=== PATIENT | female | born 1960 | race American Indian/Alaskan Native ===

== ENCOUNTER 2018-04-05 12:26 | Observation (INO) | payer MEDICARE ==
[2018-04-05] MEDS ORDERED: NACL 0.9% 1000 ML 1,000 ML IV ONE (12:47)
[2018-04-05 13:29] LABS: Bacteria,Urine 1+ /HPF (Negative); Bilirubin,Urine NEG (Negative); Blood,Urine SM (Negative); Color,Urine Yellow (Yellow); Mucus,Urine FEW /HPF; Protein,Urine <15 mg/dL mg/dL (Negative); Urobilinogen,Urine < 2.0 mg/dL (<2.0)
[2018-04-05 15:42] LABS: Basophils % (Auto) 0.4 % (0.0-1.8); Hematocrit 42.4 % (30.3-42.9); Hemoglobin 14.1 gm/dl (10.1-14.3); Lymphocytes # (Auto) 0.9 K/mm3 (1.2-5.4); Lymphocytes % (Auto) 10.3 % (13.4-35.0); Mean Corpuscular HGB Conc 33 % (30-34); Mean Corpuscular Hemoglobin 27 pg (28-32); Mean Corpuscular Volume 80 fl (79-97); Monocytes # (Auto) 0.2 K/mm3 (0.0-0.8); Monocytes % (Auto) 2.2 % (0.0-7.3); Platelet Count 331 K/mm3 (140-440); Red Blood Count 5.31 M/mm3 (3.65-5.03); Red Cell Distribution Width 14.9 % (13.2-15.2)
[2018-04-05 16:00] LABS: Alanine Aminotransferase 43 units/L (7-56); BUN/Creatinine Ratio 13; Blood Urea Nitrogen 8 mg/dL (7-17); Calcium 9.2 mg/dL (8.4-10.2); Hemolysis Index 20
[2018-04-05] MEDS ORDERED: SUBLIMAZE IV ONE (23:48)
[2018-04-05] MEDS ORDERED: ZOFRAN IV ONE (23:48)
--- NOTE | 2018-04-05 23:50 | Emergency Department Report ---
ED General Adult HPI - General Chief complaint: Abdominal Pain Stated complaint: DEHYDRATED/VOMIT/STOMACH PAIN Time Seen by Provider: 04/05/18 23:47 Source: patient, RN notes reviewed, old records reviewed Mode of arrival: Wheelchair Limitations: No Limitations - History of Present Illness Initial comments: This is a 58-year-old female who is not known to this provider previously. Past medical history includes obesity and hypertension. Recently had a gastric bypass; bariatric surgeon is Dr. Anthony Asher. Patient presents to the ER with complaint of inability to tolerate liquid feeds, nausea and vomiting. She's vomited twice in the past 24 hours. Her symptoms worsen when she tries to eat. With rest. Since she's been nauseous and vomiting, she's developed intermittent central chest pain, which does not radiate to the back, arms and neck, there is no diaphoresis, and patient denies recent aspirin use and cocaine use. She reports that she felt fine. Date 2 after her surgery, and her nausea and vomiting recently developed. She denies irritative, obstructive urinary symptoms. The patient indicates mild abdominal discomfort, secondary to surgical incisions. -: Gradual Location: chest, abdomen Radiation: non-radiation Quality: aching Consistency: intermittent Improves with: other Worsens with: other Associated Symptoms: chest pain, malaise, nausea/vomiting, weakness. denies: confusion, cough, diaphoresis, fever/chills, headaches, loss of appetite, rash, seizure, syncope - Related Data Home Medications Medication Instructions Recorded Confirmed Last Taken Citalopram Hydrobromide 20 mg PO DAILY 03/31/18 03/31/18 03/31/18 [Citalopram HBr] Famotidine 40 mg PO QHS 03/31/18 03/31/18 03/31/18 Fluticasone [Flonase] 1 spray NS QDAY 03/31/18 03/31/18 03/31/18 Metoprolol/Hydrochlorothiazide 1 tab PO QHS 03/31/18 03/31/18 03/31/18 [Metoprolol HCTZ 50-25 mg TAB] Pantoprazole [Protonix TAB] 40 mg PO QDAY 03/31/18 03/31/18 03/31/18 Topiramate [Topamax] 100 mg PO BID 03/31/18 03/31/18 03/31/18 Biotin 800 mcg PO DAILY 04/01/18 04/01/18 03/31/18 Ferrous Sulfate [Iron] 1 tab PO DAILY 04/01/18 04/01/18 03/31/18 Multivitamin [Multiple Vitamins] 1 each PO DAILY 04/01/18 04/01/18 03/31/18 Red Yeast Rice 600 mg PO DAILY 04/01/18 04/01/18 03/31/18 Allergies Allergy/AdvReac Type Severity Reaction Status Date / Time latex Allergy Rash Verified 03/31/18 10:47 ED Review of Systems ROS: Stated complaint: DEHYDRATED/VOMIT/STOMACH PAIN Other details as noted in HPI Comment: All other systems reviewed and negative ED Past Medical Hx - Past Medical History Hx Hypertension: Yes Hx Congestive Heart Failure: No Hx Diabetes: No Hx GERD: Yes Hx Liver Disease: No Hx Renal Disease: No Hx Sickle Cell Disease: No Hx Seizures: No Hx Asthma: No Hx COPD: No - Surgical History Hx Internal Defibrillator: No Hx Cholecystectomy: Yes - Social History Smoking Status: Never Smoker Substance Use Type: None - Medications Home Medications: Home Medications Medication Instructions Recorded Confirmed Last Taken Type Citalopram Hydrobromide 20 mg PO DAILY 03/31/18 03/31/18 03/31/18 History [Citalopram HBr] Famotidine 40 mg PO QHS 03/31/18 03/31/18 03/31/18 History Fluticasone [Flonase] 1 spray NS QDAY 03/31/18 03/31/18 03/31/18 History Metoprolol/Hydrochlorothiazide 1 tab PO QHS 03/31/18 03/31/18 03/31/18 History [Metoprolol HCTZ 50-25 mg TAB] Pantoprazole [Protonix TAB] 40 mg PO QDAY 03/31/18 03/31/18 03/31/18 History Topiramate [Topamax] 100 mg PO BID 03/31/18 03/31/18 03/31/18 History Biotin 800 mcg PO DAILY 04/01/18 04/01/18 03/31/18 History Ferrous Sulfate [Iron] 1 tab PO DAILY 04/01/18 04/01/18 03/31/18 History Multivitamin [Multiple Vitamins] 1 each PO DAILY 09/18/18 09/18/18 09/17/18 History Red Yeast Rice 600 mg PO DAILY 04/01/18 04/01/18 03/31/18 History ED Physical Exam - General Limitations: No Limitations General appearance: alert, in no apparent distress - Head Head exam: Present: atraumatic, normocephalic - Eye Eye exam: Present: normal appearance, EOMI. Absent: nystagmus - ENT ENT exam: Present: normal exam, normal orophraynx, mucous membranes moist, normal external ear exam - Neck Neck exam: Present: normal inspection, full ROM. Absent: tenderness, meningismus - Respiratory Respiratory exam: Present: decreased breath sounds. Absent: respiratory distress - Cardiovascular Cardiovascular Exam: Present: regular rate, normal rhythm, normal heart sounds. Absent: systolic murmur, diastolic murmur, rubs, gallop - GI/Abdominal GI/Abdominal exam: Present: soft, tenderness, other (patient has lower abdominal ecchymosis, consistent with recent surgical intervention. Mild abdominal tenderness over surgical incision sites, however no rebound, guarding or peritoneal signs.). Absent: distended, rebound, rigid, pulsatile mass - Extremities Exam Extremities exam: Present: normal inspection, full ROM, other (2+ pulses noted in the bilateral upper, lower extremities. Compartments soft. No long bony tenderness. The pelvis is stable.). Absent: pedal edema, joint swelling, calf tenderness - Back Exam Back exam: Present: normal inspection, full ROM. Absent: tenderness, CVA tenderness (R), paraspinal tenderness, vertebral tenderness - Neurological Exam Neurological exam: Present: alert, oriented X3, CN II-XII intact, other ( Extraocular movements intact. Tongue midline. No facial droop. Facial sensation intact to light touch in the V1, V2, V3 distribution bilaterally. 5 and 5 strength in 4 extremities.. Sensation is intact to light touch in 4 extremities.). Absent: motor sensory deficit - Psychiatric Psychiatric exam: Present: normal affect, normal mood - Skin Skin exam: Present: warm, dry, intact, normal color. Absent: rash ED Course Vital Signs 04/05/18 04/06/18 12:42 02:00 Temperature 98.1 F Pulse Rate 61 58 L Respiratory 16 Rate Blood Pressure 150/82 Blood Pressure 148/78 [Left] O2 Sat by Pulse 98 99 Oximetry - Reevaluation(s) Reevaluation #1: 04/06/18 00:49 Differential diagnosis, including but not limited to: Postoperative nausea and vomiting, GERD, gastritis, hiatal hernia, pulmonary embolus, acute coronary syndrome, postsurgical complication, dehydration Assessment and plan: 58-year-old female status post recent gastric bypass, with nausea and vomiting and likely chest pain secondary to nausea and vomiting. We will obtain CT scan of the chest to exclude pulmonary embolus, and CT scan of the abdomen and pelvis. I doubt pulmonary embolus given lack of tachycardia and hypoxia. X-ray the chest is negative. Found to be hypokalemic. Potassium within normal limits. We will replete potassium. Patient found to have ketones in urine, consistent with probable dehydration, D5 half-normal is ordered. We will reassess after data points have resulted. Reevaluation #2: 04/06/18 03:49 CT scan of the chest is negative for significant disease. CT scan of the abdomen and pelvis shows postoperative changes. Patient has had a negative troponin, however her EKG is markedly abnormal with numerous T-wave inversions in the anterolateral leads, with no prior for comparison. Given her advanced age, vascular risk factors, obesity, and abnormal EKG, I do not find the patient to be low risk by the heart score, do not find her suitable for outpatient cardiac risk stratification. I have rediscussed the case with the covering surgeon for Dr. Asher, Dr. Toth; the bariatric surgery team is going to follow the patient in consultation. Case is presented to the Hospital physician, Dr. Lopes, who accepted the patient to medical service for cardiac risk stratification. NSAIDs , aspirin and antiplatelet agents are contraindicated given her recent bariatric surgery, so I will defer to the inpatient team. - EJ/Peripheral Line Neck L Time Out Performed: Yes Indications: nurses unable to establis Skin Cleansed in Sterile Fashion: Yes Size: 20 Dressing Placed: Tegaderm Patient Tolerated Procedure: well ED Medical Decision Making - Lab Data Result diagrams: 04/05/18 15:18 04/05/18 15:18 Vital Signs 04/05/18 12:42 Temperature 98.1 F Pulse Rate 61 Blood Pressure 150/82 O2 Sat by Pulse 98 Oximetry Lab Results 04/05/18 04/05/18 04/05/18 Range/Units 00:00 13:06 15:18 WBC 8.6 (4.5-11.0) K/mm3 RBC 5.31 H (3.65-5.03) M/mm3 Hgb 14.1 (10.1-14.3) gm/dl Hct 42.4 (30.3-42.9) % MCV 80 (79-97) fl MCH 27 L (28-32) pg MCHC 33 (30-34) % RDW 14.9 (13.2-15.2) % Plt Count 331 (140-440) K/mm3 Lymph % (Auto) 10.3 L (13.4-35.0) % [place] % (Auto) 2.2 (0.0-7.3) % Eos % (Auto) 0.0 (0.0-4.3) % Baso % (Auto) 0.4 (0.0-1.8) % Lymph # 0.9 L (1.2-5.4) K/mm3 [place] # 0.2 (0.0-0.8) K/mm3 Eos # 0.0 (0.0-0.4) K/mm3 Baso # 0.0 (0.0-0.1) K/mm3 Seg Neutrophils % 87.1 H (40.0-70.0) % Seg Neutrophils # 7.5 (1.8-7.7) K/mm3 Sodium (137-145) mmol/L Potassium (3.6-5.0) mmol/L Chloride (98-107) mmol/L Carbon Dioxide (22-30) mmol/L Anion Gap mmol/L BUN (7-17) mg/dL Creatinine (0.7-1.2) mg/dL Estimated GFR ml/min BUN/Creatinine Ratio % Glucose (65-100) mg/dL Calcium (8.4-10.2) mg/dL Magnesium (1.7-2.3) mg/dL Total Bilirubin (0.1-1.2) mg/dL AST (5-40) units/L ALT (7-56) units/L Alkaline Phosphatase (35-129) units/L Troponin T < 0.010 (0.00-0.029) ng/mL Total Protein (6.3-8.2) g/dL Albumin (3.9-5) g/dL Albumin/Globulin Ratio % Urine Color Yellow (Yellow) Urine Turbidity Clear (Clear) Urine pH 5.0 (5.0-7.0) Ur Specific [place] 1.017 (1.003-1.030) Urine Protein <15 mg/dl (Negative) mg/dL Urine Glucose (UA) Neg (Negative) mg/dL Urine Ketones 80 (Negative) mg/dL Urine Blood Sm (Negative) Urine Nitrite Neg (Negative) Urine Bilirubin Neg (Negative) Urine Urobilinogen < 2.0 (<2.0) mg/dL Ur Leukocyte Esterase Neg (Negative) Urine WBC (Auto) 1.0 (0.0-6.0) /HPF Urine RBC (Auto) 1.0 (0.0-6.0) /HPF U Epithel Cells (Auto) 2.0 (0-13.0) /HPF Urine Bacteria (Auto) 1+ (Negative) /HPF Urine Mucus Few /HPF 04/05/18 04/05/18 Range/Units 15:18 16:20 WBC (4.5-11.0) K/mm3 RBC (3.65-5.03) M/mm3 Hgb (10.1-14.3) gm/dl Hct (30.3-42.9) % MCV (79-97) fl MCH (28-32) pg MCHC (30-34) % RDW (13.2-15.2) % Plt Count (140-440) K/mm3 Lymph % (Auto) (13.4-35.0) % [place] % (Auto) (0.0-7.3) % Eos % (Auto) (0.0-4.3) % Baso % (Auto) (0.0-1.8) % Lymph # (1.2-5.4) K/mm3 [place] # (0.0-0.8) K/mm3 Eos # (0.0-0.4) K/mm3 Baso # (0.0-0.1) K/mm3 Seg Neutrophils % (40.0-70.0) % Seg Neutrophils # (1.8-7.7) K/mm3 Sodium 135 L D (137-145) mmol/L Potassium 3.2 L (3.6-5.0) mmol/L Chloride 96.5 L (98-107) mmol/L Carbon Dioxide 22 (22-30) mmol/L Anion Gap 20 mmol/L BUN 8 (7-17) mg/dL Creatinine 0.6 L (0.7-1.2) mg/dL Estimated GFR > 60 ml/min BUN/Creatinine Ratio 13 % Glucose 115 H (65-100) mg/dL Calcium 9.2 (8.4-10.2) mg/dL Magnesium 2.10 (1.7-2.3) mg/dL Total Bilirubin 0.70 (0.1-1.2) mg/dL AST 40 (5-40) units/L ALT 43 (7-56) units/L Alkaline Phosphatase 74 (35-129) units/L Troponin T (0.00-0.029) ng/mL Total Protein 7.3 (6.3-8.2) g/dL Albumin 4.0 (3.9-5) g/dL Albumin/Globulin Ratio 1.2 % Urine Color (Yellow) Urine Turbidity (Clear) Urine pH (5.0-7.0) Ur Specific [place] (1.003-1.030) Urine Protein (Negative) mg/dL Urine Glucose (UA) (Negative) mg/dL Urine Ketones (Negative) mg/dL Urine Blood (Negative) Urine Nitrite (Negative) Urine Bilirubin (Negative) Urine Urobilinogen (<2.0) mg/dL Ur Leukocyte Esterase (Negative) Urine WBC (Auto) (0.0-6.0) /HPF Urine RBC (Auto) (0.0-6.0) /HPF U Epithel Cells (Auto) (0-13.0) /HPF Urine Bacteria (Auto) (Negative) /HPF Urine Mucus /HPF - EKG Data -: EKG Interpreted by Al - Radiology Data Radiology results: report reviewed, image reviewed X-ray of the chest is negative for acute disease Critical care attestation.: If time is entered above; I have spent that time in minutes in the direct care of this critically ill patient, excluding procedure time. ED Disposition Clinical Impression: Chest pain, Abnormal EKG, Nausea & vomiting, Dehydration, Hypokalemia Disposition: OP ADMIT IP TO THIS HOSP Is pt being admited?: Yes Condition: Good Instructions: Abdominal Pain (ED), Chest Pain (ED) Referrals: PRIMARY CARE, [Primary Care Provider] - 3-5 Days
--- NOTE | 2018-04-06 00:13 | XRay Report ---
FINAL REPORT EXAM: XR CHEST 1V AP HISTORY: cp TECHNIQUE: AP portable view of the chest. PRIORS: None. FINDINGS: The cardiomediastinal silhouette appears normal. The lungs are clear. The bones and soft tissues are unremarkable. IMPRESSION: No evidence of acute cardiopulmonary disease.
[2018-04-06] MEDS ORDERED: D5/0.45NS 1,000 ML IV SCH (01:00)
[2018-04-06 01:32] LABS: INR 0.99 (0.87-1.13)
[2018-04-06] MEDS ORDERED: ZOFRAN ONE (01:58)
[2018-04-06] MEDS ORDERED: SUBLIMAZE ONE (01:59)
[2018-04-06] MEDS: KCL 10MEQ/100ML 10 MEQ/100 ML BAG IV SCH ×6 (02:00→11:16)
--- NOTE | 2018-04-06 02:00 | Cat Scan Report ---
FINAL REPORT EXAM: CT ANGIO CHEST HISTORY: chest pain recent gastric bypass TECHNIQUE: High-resolution helical axial images were obtained of the chest during intravenous administration of iodinated contrast. Images are reconstructed in the sagittal and coronal planes. PRIORS: None. FINDINGS: There is no evidence of pulmonary embolism, the pulmonary arteries opacify normally. The heart and thoracic aorta appear normal. There is a small left pleural effusion. There is mild left basilar subsegmental atelectasis. The right lung is clear Images through the upper abdomen are unremarkable. The bones are unremarkable. IMPRESSION: 1. No evidence of pulmonary embolism. 2. Small left pleural effusion and mild left basilar subsegmental atelectasis
--- NOTE | 2018-04-06 02:38 | Cat Scan Report ---
FINAL REPORT EXAM: CT ABDOMEN PELVIS W CON HISTORY: abd pain pain recent gastric bypass TECHNIQUE: Dynamic helical CT scan through the abdomen and pelvis during and again after intravenous injection of iodinated contrast. Images are reconstructed in the sagittal and coronal planes. Oral contrast was not given. PRIORS: None. FINDINGS: The liver, pancreas and adrenal glands appear normal. There are surgical clips in the gallbladder fossa. There is a 2.3 cm low-attenuation lesion in the spleen with punctate calcifications. The right kidney appears normal. There is a 1.3 cm cyst in the left kidney. The pelvic organs appear grossly normal. There is a small amount of free pelvic fluid There are multiple surgical clips in the stomach. The loop of jejunum that is anastomosed with stomach is thickened and has an air-fluid level. A normal-appearing appendix is identified. There is no evidence of bowel obstruction. The abdominal aorta has a normal diameter. The bones and subcutaneous soft tissues are unremarkable for age. There graying of the subcutaneous fat of the anterior abdominal wall below the umbilicus. IMPRESSION: 1. There is thickening with air-fluid levels of the proximal jejunum near the gastric anastomosis. This may represent inflammatory or postoperative change. There is no evidence of bowel obstruction. 2. Graying of the subcutaneous fat of the anterior abdominal wall below the umbilicus may represent panniculitis. 3. There is a small amount of free pelvic fluid probably related to recent surgery.
[2018-04-06] MEDS ORDERED: TYLENOL PO PRN (04:38)
[2018-04-06] MEDS ORDERED: PHENERGAN PR PRN (04:38)
[2018-04-06] MEDS ORDERED: ZOFRAN IV PRN (04:38)
[2018-04-06] MEDS ORDERED: SODIUM CHLORIDE FLUSH SYRINGE 10 ML IV PRN (04:38)
[2018-04-06] MEDS ORDERED: NITROSTAT SL PRN (04:45)
--- NOTE | 2018-04-06 04:57 | History and Physical Report ---
History of Present Illness Date of examination: 04/06/18 Date of admission: 04/06/18 Chief complaint: Nausea and vomiting History of present illness: Patient is a 58-year-old -[place] female with history of chronic headaches and hypertension who presented to the ED on account of 2 days history of nausea with vomiting times multiple episodes. Patient stated that she had gastric bypass surgery 3 days prior to onset of symptoms. She has associated generalized abdominal soreness and constipation. She is also complaining of one -day history of midsternal chest pain. She described it as aching in nature, rated 8/10, constant in duration and nonradiating. She has associated dry cough , chronic headaches and dizziness. No diaphoresis, palpitation, leg swelling, fever, chills, orthopnea or PND. No diarrhea, dysuria or frequency. No syncope or loss of consciousness. Past History Past Medical History: GERD, hypertension, other (chronic headaches, obesity) Past Surgical History: cholecystectomy, Other (gastric bypass) Social history: no significant social history (she denies tobacco, alcohol or illicit drug use) Family history: no significant family history (reviewed and non-contributory) Medications and Allergies Allergies Allergy/AdvReac Type Severity Reaction Status Date / Time latex Allergy Rash Verified 03/31/18 10:47 Home Medications Medication Instructions Recorded Confirmed Last Taken Type Citalopram Hydrobromide 20 mg PO DAILY 03/31/18 03/31/18 03/31/18 History [Citalopram HBr] Famotidine 40 mg PO QHS 03/31/18 03/31/18 03/31/18 History Fluticasone [Flonase] 1 spray NS QDAY 03/31/18 03/31/18 03/31/18 History Metoprolol/Hydrochlorothiazide 1 tab PO QHS 03/31/18 03/31/18 03/31/18 History [Metoprolol HCTZ 50-25 mg TAB] Pantoprazole [Protonix TAB] 40 mg PO QDAY 03/31/18 03/31/18 03/31/18 History Topiramate [Topamax] 100 mg PO BID 03/31/18 03/31/18 03/31/18 History Biotin 800 mcg PO DAILY 04/01/18 04/01/18 03/31/18 History Ferrous Sulfate [Iron] 1 tab PO DAILY 04/01/18 04/01/18 03/31/18 History Multivitamin [Multiple Vitamins] 1 each PO DAILY 04/01/18 04/01/18 03/31/18 History Red Yeast Rice 600 mg PO DAILY 04/01/18 04/01/18 03/31/18 History Active Meds: Active Medications Acetaminophen (Tylenol) 650 mg PO Q4H PRN PRN Reason: Pain MILD(1-3)/Fever >100.5/[place] Acetaminophen/Hydrocodone Bitart ([place] 5/325) 1 each PO Q6H PRN PRN Reason: Pain, Moderate (4-6) Enoxaparin Sodium (Lovenox) 40 mg SUB-Q QDAY RIO Famotidine (Pepcid) 10 mg IV BID [facility] Dextrose/Sodium Chloride (D5/0.45ns) 1,000 mls @ 0 mls/hr IV DIRECT RIO Last Admin: 04/06/18 02:23 Dose: 999 mls/hr Potassium Chloride/Sodium Chloride (Ns/Kcl 20meq) 20 meq in 1,000 mls @ 100 mls /hr IV DIRECT RIO Potassium Chloride (Kcl 10meq/100ml) 10 meq in 100 mls @ 100 mls/hr IV Q1H [facility] Stop: 04/06/18 08:59 Morphine Sulfate (Morphine) 2 mg IV Q4H PRN PRN Reason: Pain, Moderate (4-6) Nitroglycerin (Nitrostat) 0.4 mg SL .Q5MIN PRN PRN Reason: Chest Pain Ondansetron HCl (Zofran) 4 mg IV Q4H PRN PRN Reason: Nausea And Vomiting Potassium Chloride (K-Dur) 20 meq PO DAILY RIO Stop: 04/08/18 09:59 Promethazine HCl (Phenergan) 25 mg UT Q6H PRN PRN Reason: N/V IF NPO AND NO IV ACCESS Sodium Chloride (Sodium Chloride Flush Syringe 10 Ml) 10 ml IV BID RIO Sodium Chloride (Sodium Chloride Flush Syringe 10 Ml) 10 ml IV PRN PRN PRN Reason: LINE FLUSH Review of Systems All systems: negative (except as documented in the HPI, all other systems were reviewed and negative) Exam - Constitutional Vitals: Temp Pulse Resp BP Pulse Ox 98.1 F 58 L 16 148/78 99 04/05/18 12:42 04/06/18 02:00 04/06/18 02:00 04/06/18 02:00 04/06/18 02:00 General appearance: Present: no acute distress, well-nourished - EENT Eyes: Present: PERRL, EOM intact ENT: hearing intact, clear oral mucosa - Neck Neck: Present: supple, normal ROM - Respiratory Respiratory effort: normal Respiratory: bilateral: CTA - Cardiovascular Rhythm: regular Heart Sounds: Present: S1 & S2. Absent: rub, click - Extremities Extremities: pulses symmetrical, No edema Peripheral Pulses: within normal limits - Abdominal General gastrointestinal: Present: soft, tender (mild and generalized), non- distended, normal bowel sounds, other (operation site clean) - Integumentary Integumentary: Present: clear, warm, dry - Musculoskeletal Musculoskeletal: gait normal, strength equal bilaterally - Psychiatric Psychiatric: appropriate mood/affect, intact judgment & insight - Neurologic Neurologic: CNII-XII intact, moves all extremities Results - Labs CBC & Chem 7: 04/05/18 15:18 04/05/18 15:18 Labs: Laboratory Last Values WBC 8.6 K/mm3 (4.5-11.0) 04/05/18 15:18 RBC 5.31 M/mm3 (3.65-5.03) H 04/05/18 15:18 Hgb 14.1 gm/dl (10.1-14.3) 04/05/18 15:18 Hct 42.4 % (30.3-42.9) 04/05/18 15:18 MCV 80 fl (79-97) 04/05/18 15:18 MCH 27 pg (28-32) L 04/05/18 15:18 MCHC 33 % (30-34) 04/05/18 15:18 RDW 14.9 % (13.2-15.2) 04/05/18 15:18 Plt Count 331 K/mm3 (140-440) 04/05/18 15:18 Lymph % (Auto) 10.3 % (13.4-35.0) L 04/05/18 15:18 [place] % (Auto) 2.2 % (0.0-7.3) 04/05/18 15:18 Eos % (Auto) 0.0 % (0.0-4.3) 04/05/18 15:18 Baso % (Auto) 0.4 % (0.0-1.8) 04/05/18 15:18 Lymph # 0.9 K/mm3 (1.2-5.4) L 04/05/18 15:18 [place] # 0.2 K/mm3 (0.0-0.8) 04/05/18 15:18 Eos # 0.0 K/mm3 (0.0-0.4) 04/05/18 15:18 Baso # 0.0 K/mm3 (0.0-0.1) 04/05/18 15:18 Seg Neutrophils % 87.1 % (40.0-70.0) H 04/05/18 15:18 Seg Neutrophils # 7.5 K/mm3 (1.8-7.7) 04/05/18 15:18 PT 13.6 Sec. (12.2-14.9) 04/05/18 00:49 INR 0.99 (0.87-1.13) 04/05/18 00:49 Sodium 135 mmol/L (137-145) L D 04/05/18 15:18 Potassium 3.2 mmol/L (3.6-5.0) L 04/05/18 15:18 Chloride 96.5 mmol/L (98-107) L 04/05/18 15:18 Carbon Dioxide 22 mmol/L (22-30) 04/05/18 15:18 Anion Gap 20 mmol/L 04/05/18 15:18 BUN 8 mg/dL (7-17) 04/05/18 15:18 Creatinine 0.6 mg/dL (0.7-1.2) L 04/05/18 15:18 Estimated GFR > 60 ml/min 04/05/18 15:18 BUN/Creatinine Ratio 13 % 04/05/18 15:18 Glucose 115 mg/dL (65-100) H 04/05/18 15:18 Calcium 9.2 mg/dL (8.4-10.2) 04/05/18 15:18 Magnesium 2.10 mg/dL (1.7-2.3) 04/05/18 16:20 Total Bilirubin 0.70 mg/dL (0.1-1.2) 04/05/18 15:18 AST 40 units/L (5-40) 04/05/18 15:18 ALT 43 units/L (7-56) 04/05/18 15:18 Alkaline Phosphatase 74 units/L (35-129) 04/05/18 15:18 Troponin T < 0.010 ng/mL (0.00-0.029) 04/05/18 00:00 Total Protein 7.3 g/dL (6.3-8.2) 04/05/18 15: Albumin 4.0 g/dL (3.9-5) 04/05/18 15:18 Albumin/Globulin Ratio 1.2 % 04/05/18 15:18 Urine Color Yellow (Yellow) 04/05/18 13:06 Urine Turbidity Clear (Clear) 04/05/18 13:06 Urine pH 5.0 (5.0-7.0) 04/05/18 13:06 Ur Specific [place] 1.017 (1.003-1.030) 04/05/18 13:06 Urine Protein <15 mg/dl mg/dL (Negative) 04/05/18 13:06 Urine Glucose (UA) Neg mg/dL (Negative) 04/05/18 13:06 Urine Ketones 80 mg/dL (Negative) 04/05/18 13:06 Urine Blood Sm (Negative) 04/05/18 13:06 Urine Nitrite Neg (Negative) 04/05/18 13:06 Urine Bilirubin Neg (Negative) 04/05/18 13:06 Urine Urobilinogen < 2.0 mg/dL (<2.0) 04/05/18 13:06 Ur Leukocyte Esterase Neg (Negative) 04/05/18 13:06 Urine WBC (Auto) 1.0 /HPF (0.0-6.0) 04/05/18 13:06 Urine RBC (Auto) 1.0 /HPF (0.0-6.0) 04/05/18 13:06 U Epithel Cells (Auto) 2.0 /HPF (0-13.0) 04/05/18 13:06 Urine Bacteria (Auto) 1+ /HPF (Negative) 04/05/18 13:06 Urine Mucus Few /HPF 04/05/18 13:06 Assessment and Plan Assessment and plan: Intractable N/V -On PRN anti-emetics and IVF Atypical chest pain, probably sec to GERD -On IV protonix -will cont serial troponin level and EKG monitoring -Pt reported that she had a stress less than a yr ago, which was normal Hypokalemia -will replete and monitor k level -mg level normal Mild hyponatremia -On IVF, will monitor Na level Chronic headaches -resume home med HTN, stable -resume home meds and PRN hydralazine Constipation -on laxatives Hx of recent gastric bypass -Her surgeon consulted in the ED Prophylaxis -DVT Prophylaxis with Lovenox TIME SPENT: 35 MINUTES Disposition: discharge will depend on clinical course
[2018-04-06] MEDS ORDERED: DULCOLAX PO PRN (05:02)
[2018-04-06] MEDS ORDERED: APRESOLINE IV PRN (05:15)
[2018-04-06] MEDS ORDERED: NACL 0.9% 500 ML 500 ML IV ONE (06:00)
[2018-04-06] MEDS ORDERED: NACL 0.9% 500 ML 500 ML ONE (06:35)
[2018-04-06] MEDS: MORPHINE IV PRN ×3 (06:59→21:45)
--- NOTE | 2018-04-06 09:48 | Consultation ---
History of Present Illness - Reason for Consult Consult date: 04/06/18 Post-surgical patient Requesting physician: NANCY CUEVAS - History of Present Illness 58F POD#5 from laparoscopic RYGB and upper endoscopy (04/01/18) for morbid obesity, known to Dr Asher's service, admitted from ER early this am for nausea , vomiting, abdominal and chest pain. She states this started two days after surgery and gradually worsened where she could no longer take in any po due to intractable nausea. Ondansetron did not help as she could not swallow any pills. She presented to the ER last night w/ c/o N/V/chest and abd pain. Denies fevers, chills, diarrhea, dysuria, and constipation, although she does c/o lower abdominal discomfort or "heaviness" in her abdominal wall. Labs were obtained which demonstrated hypokalemia at 3.2, the rest of the values were WNL. A CTA chest was done which was negative and a CT abd/pelvis w/ IV contrast showed routine postop changes, no other acute pathology. An EKG was abnormal and thus she was admitted to the Hospitalist service for further cardiac evaluation. This am, she reports feeling better in terms of nausea. She does feel hungry and her abdominal pain is improved. Past History Past Medical History: GERD, hypertension, other (chronic headaches, obesity) Past Surgical History: cholecystectomy, Other (gastric bypass) Social history: no significant social history (she denies tobacco, alcohol or illicit drug use), Family history: no significant family history (reviewed and non-contributory) Medications and Allergies Allergies Allergy/AdvReac Type Severity Reaction Status Date / Time latex Allergy Rash Verified 03/31/18 10:47 Home Medications Medication Instructions Recorded Confirmed Last Taken Type Citalopram Hydrobromide 20 mg PO DAILY 03/31/18 03/31/18 03/31/18 History [Citalopram HBr] Famotidine 40 mg PO QHS 03/31/18 03/31/18 03/31/18 History Fluticasone [Flonase] 1 spray NS QDAY 03/31/18 03/31/18 03/31/18 History Metoprolol/Hydrochlorothiazide 1 tab PO QHS 03/31/18 03/31/18 03/31/18 History [Metoprolol HCTZ 50-25 mg TAB] Pantoprazole [Protonix TAB] 40 mg PO QDAY 03/31/18 03/31/18 03/31/18 History Topiramate [Topamax] 100 mg PO BID 03/31/18 03/31/18 03/31/18 History Biotin 800 mcg PO DAILY 04/01/18 04/01/18 03/31/18 History Ferrous Sulfate [Iron] 1 tab PO DAILY 04/01/18 04/01/18 03/31/18 History Multivitamin [Multiple Vitamins] 1 each PO DAILY 04/01/18 04/01/18 03/31/18 History Red Yeast Rice 600 mg PO DAILY 04/01/18 04/01/18 03/31/18 History Active Meds: Active Medications Acetaminophen (Tylenol) 650 mg PO Q4H PRN PRN Reason: Pain MILD(1-3)/Fever >100.5/[place]TE[place] Acetaminophen/Hydrocodone Bitart ([place] 5/325) 1 each PO Q6H PRN PRN Reason: Pain, Moderate (4-6) Bisacodyl (Dulcolax) 10 mg PO QDAY PRN PRN Reason: Constipation Enoxaparin Sodium (Lovenox) 40 mg SUB-Q QDAY RIO Hydralazine HCl (Apresoline) 10 mg IV Q6H PRN PRN Reason: Blood Pressure Potassium Chloride/Sodium Chloride (Ns/Kcl 20meq) 20 meq in 1,000 mls @ 100 mls /hr IV DIRECT RIO Morphine Sulfate (Morphine) 2 mg IV Q4H PRN PRN Reason: Pain, Moderate (4-6) Last Admin: 04/06/18 06:59 Dose: 2 mg Nitroglycerin (Nitrostat) 0.4 mg SL .Q5MIN PRN PRN Reason: Chest Pain Ondansetron HCl (Zofran) 4 mg IV Q4H PRN PRN Reason: Nausea And Vomiting Pantoprazole Sodium (Protonix) 40 mg IV BID [facility] Potassium Chloride (K-Dur) 20 meq PO DAILY RIO Stop: 04/08/18 09:59 Promethazine HCl (Phenergan) 25 mg TX Q6H PRN PRN Reason: N/V IF NPO AND NO IV ACCESS Senna/Docusate Sodium (Senokot S) 2 tab PO BID [facility] Sodium Chloride (Sodium Chloride Flush Syringe 10 Ml) 10 ml IV BID RIO Sodium Chloride (Sodium Chloride Flush Syringe 10 Ml) 10 ml IV PRN PRN PRN Reason: LINE FLUSH Review of Systems All systems: negative (as mentioned in HPI) Exam - Physical Exam Narrative exam: GEN: AAO, NAD, laying in bed. Her daughter is present HEENT: Atraumatic HEART: RRR, normal S1 and S2, no murmurs are appreciated LUNGS: CTAB, no wheezes, no rales ABD: Soft, morbidly obese, mildly tender at lower mid-quadrant, Incisions c/d/ i. Large ecchymotic region inferior to her umbilicus that is soft, no crepitus or induration palpated, no warmth. EXT: no LE edema NEURO: venue attendant grossly intact, gait unassessed PSYCH: normal affect, cooperative - Constitutional Vitals: Temp Pulse Resp BP Pulse Ox 98.5 F 64 18 96/52 98 04/06/18 08:08 04/06/18 08:08 04/06/18 08:08 04/06/18 08:08 04/06/18 08:08 Results - Labs CBC & Chem 7: 04/05/18 15:18 04/05/18 15:18 Labs: Abnormal lab results 04/05/18 04/05/18 Range/Units 15:18 15:18 RBC 5.31 H (3.65-5.03) M/mm3 MCH 27 L (28-32) pg Lymph % (Auto) 10.3 L (13.4-35.0) % Lymph # 0.9 L (1.2-5.4) K/mm3 Seg Neutrophils % 87.1 H (40.0-70.0) % Sodium 135 L D (137-145) mmol/L Potassium 3.2 L (3.6-5.0) mmol/L Chloride 96.5 L (98-107) mmol/L Creatinine 0.6 L (0.7-1.2) mg/dL Glucose 115 H (65-100) mg/dL - Imaging and Cardiology Chest x-ray: report reviewed, image reviewed CT scan - abdomen: report reviewed, image reviewed CT scan - chest: report reviewed, image reviewed CT scan - pelvis: report reviewed, image reviewed Assessment and Plan 58F s/p LRYGB 04/01/18 admitted 04/06/18 with nausea, vomiting, abdominal and chest pain. #1 Nausea, vomiting #2 Abdominal and chest pain - CT chest and abd/pelvis were reviewed. Her pain is likely secondary to nausea and vomiting. - Anti-nausea medications PRN - Pain medication PRN - Continue IVF hydration - Recommend abdominal binder for comfort #3 MO s/p LRYGB 04/01/18 - Patient may have bariatric clear liquid diet as tolerated. No carbonation or sugar should be added. She will be on this diet for another week. - Any oral medications should be crushed or broken into smaller pieces. - Encourage ambulation QID. SCDs as per hospital protocol. DVT prophylaxis as per hospital protocol. #4 EKG changes - management per primary service - if patient requires aspirin, ok from surgical standpoint Will follow. Thank you for consult. Jack Holt MD Bariatric Fellow
[2018-04-06] MEDS ORDERED: K-DUR PO SCH (10:00)
[2018-04-06] MEDS ORDERED: PEPCID IV SCH (10:00)
[2018-04-06] MEDS: NORCO 5/325 PO PRN ×2 (10:48→11:02)
[2018-04-06] MEDS: LOVENOX SUB-Q SCH (10:48)
[2018-04-06] MEDS: PROTONIX IV SCH ×2 (10:49→21:46)
[2018-04-06] MEDS: SENOKOT S PO SCH ×2 (11:02→21:46)
[2018-04-06] MEDS: SODIUM CHLORIDE FLUSH SYRINGE 10 ML IV SCH ×2 (11:06→21:47)
--- NOTE | 2018-04-06 14:27 | Event Note ---
Date: 04/06/18 Pt seen and examined Patient is a 58-year-old -[place] female with history of chronic headaches and hypertension who presented to the ED on account of 2 days history of nausea with vomiting times multiple episodes. Patient stated that she had gastric bypass surgery 3 days prior to onset of symptom. N/V improved this am, started on bariatric diet cont current Mx and plan as dictated in h and p.
[2018-04-06] MEDS: POTASSIUM CHLORIDE FEEDTUBE SCH (15:36)
[2018-04-06] MEDS: NS/KCL 20MEQ 20 MEQ/1,000 ML BAG IV SCH (17:25)
[2018-04-06] MEDS ORDERED: HYDROGEN PEROXIDE TP ONE (20:34)
[2018-04-07] MEDS: NORCO 5/325 PO PRN ×2 (00:11→06:38)
[2018-04-07] MEDS: MORPHINE IV PRN (02:10)
[2018-04-07] MEDS: NS/KCL 20MEQ 20 MEQ/1,000 ML BAG IV SCH (02:11)
[2018-04-07 07:13] LABS: BUN/Creatinine Ratio 11; Blood Urea Nitrogen 8 mg/dL (7-17); Calcium 8.4 mg/dL (8.4-10.2); Chol/HDL Ratio 2.71 %; HDL Cholesterol 49 mg/dL (40-59); Hemolysis Index 4; LDL Cholesterol,Direct 69 mg/dL (50-130)
--- NOTE | 2018-04-07 08:13 | Progress Note ---
Assessment and Plan 58F s/p LRYGB 04/01/18 admitted 04/06/18 with nausea, vomiting, abdominal and chest pain; EKG changes. #1 Nausea, vomiting #2 Abdominal and chest pain - CT chest and abd/pelvis were reviewed. Her pain is likely secondary to nausea and vomiting. - Anti-nausea medications PRN - Pain medication PRN - Continue IVF hydration - Recommend abdominal binder for comfort. Patient to request from RN. - Symptoms improved, continue cares per primary service. #3 MO s/p LRYGB 04/01/18 - Patient may have bariatric clear liquid diet as tolerated. No carbonation or sugar. She will be on this diet for 1 week. - Any oral medications should be crushed or broken into smaller pieces. - Encourage ambulation QID. SCDs as per hospital protocol. DVT prophylaxis as per hospital protocol. #4 EKG changes - management per primary service - if patient requires aspirin, ok from surgical standpoint Will follow. Please have her f/u in clinic ([facility] w/ Dr Asher) in 1 week after discharge. Jack Holt MD Bariatric Fellow Subjective Date of service: 04/07/18 Principal diagnosis: N/V/abd and chest pain/EKG changes Interval history: Started on a bariatric CLD yesterday, which she is tolerating. Still having some nausea, but no vomiting. Nausea meds help. c/o more umbilical discomfort this am after doing more ambulation and showering this am. No chest pain or SOB. Feeling overall much better. c/o itching w/ morphine. Objective - Exam Narrative Exam: GEN: AAO, NAD, laying in bed. HEENT: Atraumatic HEART: RRR, normal S1 and S2, no murmurs are appreciated LUNGS: CTAB, no wheezes, no rales ABD: Soft, morbidly obese, mildly tender at lower mid-quadrant over ecchymotic region, Incisions c/d/i. Large ecchymotic region inferior to her umbilicus that is unchanged from prior. No drainage from umbo. EXT: no LE edema NEURO: javascript software engineer grossly intact, gait unassessed PSYCH: normal affect, cooperative - Constitutional Vitals: Vital Signs - 12hr 04/06/18 04/06/18 04/06/18 20:48 21:01 21:45 Temperature Pulse Rate 60 Pulse Rate [ 60 Apical] Respiratory 20 18 20 Rate Blood Pressure 134/66 O2 Sat by Pulse 100 100 Oximetry 04/06/18 04/06/18 04/07/18 22:15 23:47 00:11 Temperature 98.0 F Pulse Rate 63 Pulse Rate [ Apical] Respiratory 20 20 20 Rate Blood Pressure 112/51 O2 Sat by Pulse 97 Oximetry 04/07/18 04/07/18 04/07/18 01:11 02:10 02:40 Temperature Pulse Rate Pulse Rate [ Apical] Respiratory 18 20 18 Rate Blood Pressure O2 Sat by Pulse Oximetry 04/07/18 04/07/18 05:03 06:38 Temperature 98.8 F Pulse Rate 65 Pulse Rate [ Apical] Respiratory 20 20 Rate Blood Pressure 109/55 O2 Sat by Pulse 92 Oximetry - Labs CBC & Chem 7: 04/05/18 15:18 04/07/18 05:16 Labs: Abnormal lab results 04/07/18 Range/Units 05:16 Chloride 108.3 H (98-107) mmol/L
[2018-04-07] MEDS ORDERED: PREVACID SOLUTAB FEEDTUBE SCH (10:00)
[2018-04-07] MEDS: SENOKOT S PO SCH (11:29)
[2018-04-07] MEDS: POTASSIUM CHLORIDE FEEDTUBE SCH (11:30)
[2018-04-07] MEDS: SODIUM CHLORIDE FLUSH SYRINGE 10 ML IV SCH (11:30)
[2018-04-07] MEDS: LOVENOX SUB-Q SCH (11:31)
--- NOTE | 2018-04-07 12:35 | Discharge Summary ---
Providers - Providers Date of Admission: 04/06/18 04:38 Date of discharge: 04/07/18 Attending physician: DAVID CASTELLON 04/05/18 23:48 Consult to Physician [CONS] Urgent Comment: Consulting Provider: PAULINA AGUILERA Physician Instructions: Reason For Exam: abd pain Primary care physician: NATIONAL BUSINESS DIRECTOR Hospitalization Condition: Good Pertinent studies: CXR: No evidence of acute cardiopulmonary disease. CT abdomen/pelvis; 1. There is thickening with air-fluid levels of the proximal jejunum near the gastric anastomosis. This may represent inflammatory or postoperative change. There is no evidence of bowel obstruction. 2. Graying of the subcutaneous fat of the anterior abdominal wall below the umbilicus may represent panniculitis. 3. There is a small amount of free pelvic fluid probably related to recent surgery. CTA chest; 1. No evidence of pulmonary embolism. 2. Small left pleural effusion and mild left basilar subsegmental atelectasis. Hospital course: Discharge diagnosis: Intractable N/V -Placed on PRN anti-emetics and IVF - tolerated clear liquid diet AND NEED TO BE ON SAME FOR ONE WEEK Atypical chest pain, probably sec to GERD -pLACED On IV protonix, then switched to po -negative serial troponin level and no ST changes on EKG monitoring -Pt reported that she had a stress less than a yr ago, which was normal Hypokalemia -Repleted and monitored k level -mg level normal Mild hyponatremia -Improved On IVF, monitored Na level Chronic headaches -resumed home med HTN, stable -resumed home meds and PRN hydralazine Constipation -on laxatives Hx of recent gastric bypass -Her surgeon consulted in the ED Prophylaxis -DVT Prophylaxis with Lovenox Disposition: DC-01 TO HOME OR SELFCARE Time spent for discharge: 34 minutes Core Measure Documentation - Palliative Care Palliative Care/ Comfort Measures: Not Applicable - Core Measures Any of the following diagnoses?: none Exam - Constitutional Vitals: Temp Pulse Resp BP Pulse Ox 98.1 F 69 18 108/64 96 04/07/18 08:19 04/07/18 10:00 04/07/18 10:00 04/07/18 08:19 04/07/18 08:19 General appearance: Present: no acute distress, obese - EENT Eyes: Present: PERRL ENT: hearing intact, clear oral mucosa - Neck Neck: Present: supple, normal ROM - Respiratory Respiratory effort: normal Respiratory: bilateral: CTA - Cardiovascular Heart Sounds: Present: S1 & S2. Absent: rub, click - Extremities Extremities: pulses symmetrical, No edema Peripheral Pulses: within normal limits - Abdominal General gastrointestinal: Present: soft, non-tender, non-distended, normal bowel sounds - Integumentary Integumentary: Present: clear, warm, dry - Musculoskeletal Musculoskeletal: gait normal, strength equal bilaterally - Psychiatric Psychiatric: appropriate mood/affect, intact judgment & insight - Neurologic Neurologic: CNII-XII intact, moves all extremities Plan Activity: advance as tolerated Weight Bearing Status: Non-Weight Bearing Diet: clear liquids (for atleast one week) Wound: keep clean and dry Additional Instructions: f/u with Follow up with: PRIMARY CARE, [Primary Care Provider] - 3-5 Days Prescriptions: Promethazine HCl [Promethazine TAB] 25 mg PO Q6H PRN #14 tablet PRN Reason: Nausea
[2018-04-07 13:02] VITALS: BP 138/77
[2018-04-07] MEDS ORDERED: PROTONIX PO SCH (15:00)
[2018-04-07] MEDS ORDERED: FEOSOL PO SCH (15:00)
[2018-04-07] MEDS ORDERED: BIOTIN 800 MCG PO SCH (15:00)
[2018-04-07] MEDS ORDERED: celeXA PO SCH (15:00)
[2018-04-07] MEDS ORDERED: NON-FORMULARY (Multivitamin [Multiple Vitamins] 1 EACH) PO SCH (15:00)
[2018-04-07] MEDS ORDERED: THERAGRAN-M Tab PO SCH (15:00)
[2018-04-07] MEDS ORDERED: TOPAMAX PO SCH (15:00)
== END 2018-04-07 17:36 | disposition home or self-care (01) ==
LOC: ED 12:26 → 4A 04-06 04:38
PROVIDERS: ADMIT Internal Medicine; ATTEND Internal Medicine
DX: R11.2 Nausea with vomiting, unspecified (principal); R07.89 Other chest pain; R10.9 Unspecified abdominal pain; E87.6 Hypokalemia; E87.1 Hypo-osmolality and hyponatremia; K59.00 Constipation, unspecified; R51 Headache; I10 Essential (primary) hypertension; K21.9 Gastro-esophageal reflux disease without esophagitis; E66.9 Obesity, unspecified; Z98.84 Bariatric surgery status; Z68.38 Body mass index [BMI] 38.0-38.9, adult
CPT/HCPCS: 36415; 71045; 71275; 74177; 80048; 80053; 80061; 81001; 83735; 84484; 85025; 85610; 93005; 93010; 96365; 96366; 96372; 96375; 96376; 99285; C9113; G0378; J1650; J2270; J2405; J3010; J3480; J7040; Q9967